=== PATIENT | female | born 1985 | race Caucasian/White ===

== ENCOUNTER 2020-02-12 09:02 | Observation (INO) | payer OTHER ==
[2020-02-12 10:54] LABS: AMORPHOUS SEDIMENT,URINE TRACE /HPF; APPEARANCE,URINE CLOUDY; BILIRUBIN,URINE NEGATIVE (NEGATIVE); COLOR,URINE YELLOW; GLUCOSE, URINE NEGATIVE (NEGATIVE); KETONES,URINE NEGATIVE (NEGATIVE); LEUKOCYTE ESTERASE,URINE NEGATIVE (NEGATIVE); NITRITE,URINE NEGATIVE (NEGATIVE); PROTEIN,URINE 30 mg/dL (NEGATIVE); URINE SPECIFIC GRAVITY 1.024; UROBILINOGEN,URINE NEGATIVE mg/dL (<2.0)
--- NOTE | 2020-02-12 11:52 | ER Document Report ---
ED GI/ - General Chief Complaint: Abdominal Pain Stated Complaint: ABDOMINAL PAIN Time Seen by Provider: 02/12/20 11:46 Notes: CHIEF COMPLAINT: Acute pelvic pain today HPI: 34-year-old female presenting to the emergency department complaining of acute pelvic pain today. Patient reports being approximately 5 weeks by dates. States that pain is mostly focalized in the lower abdomen and pelvis region over the suprapubic section she does have slight upper abdominal discomfort as well. No fever. No vomiting. Has had some nausea. Patient denies vaginal bleeding or vaginal discharge ROS: See HPI - all other systems were reviewed and are otherwise negative Constitutional: no fever or recent illness Eyes: no drainage, no blurred vision ENT: no runny nose, no sore throat Cardiovascular: no chest pain Resp: no SOB, no cough GI: no vomiting, no diarrhea, positive pelvic abdominal pain : no dysuria, no vaginal discharge Integumentary: no rash Allergy: no hives Musculoskeletal: no extremity pain or swelling Neurological: no numbness/tingling, no weakness MEDICATIONS: I agree with the patient medications as charted by the RN. ALLERGIES: I agree with the allergies as charted by the RN. PAST MEDICAL HISTORY/PAST SURGICAL HISTORY: Reviewed and agree as charted by RN. SOCIAL HISTORY: Reviewed and agree as charted by RN. FAMILY HISTORY: No significant familial comorbid conditions directly related to patient complaint EXAM: Reviewed vital signs as charted by RN. CONSTITUTIONAL: Alert and oriented and responds appropriately to questions. Well-appearing; well-nourished HEAD: Normocephalic; atraumatic EYES: PERRL; Conjunctivae clear, sclerae non-icteric ENT: normal nose; no rhinorrhea; moist mucous membranes; pharynx without lesions noted NECK: Supple without meningismus; non-tender; no cervical lymphadenopathy, no masses CARD: RRR; no murmurs, no clicks, no rubs, no gallops; symmetric distal pulses RESP: Normal chest excursion without splinting or tachypnea; breath sounds clear and equal bilaterally; no wheezes, no rhonchi, no rales ABD/GI: Normal bowel sounds; non-distended; soft, mild tenderness to the epigastric right upper quadrant region as well as across the suprapubic region of the pelvis and abdomen, no rebound, no guarding; no palpable organomegaly or masses : Female nurse wet pan mixer present. External genitalia normal. No skin lesions noted. Pelvic Exam: No active bleeding. No purulent discharge. Cervix appears normal. No CMT. cervical loss is closed no lesions or masses. Uterus difficult to palpate and moderately tender. Right/Left adnexa normal size and mildly tender. BACK: The back appears normal and is non-tender to palpation, there is no CVA tenderness EXT: Normal ROM in all joints; non-tender to palpation; no cyanosis, no effusions, no edema SKIN: Normal color for age and race; warm; dry; good turgor; no acute lesions noted NEURO: Moves all extremities equally; Motor and sensory function intact PSYCH: The patient's mood and manner are appropriate. Grooming and personal hygiene are appropriate. MDM: 34-year-old female with sharp pelvic pain today believes she is approximately 5 weeks , differential is large would include ectopic or ruptured ectopic, no specific pain in the right lower quadrant suggesting appendicitis. Will obtain baseline screening labs, sent for ultrasound - Related Data Allergies/Adverse Reactions: No Known Allergies Allergy (Unverified 02/12/20 09:14) Past Medical History - Social History Smoking Status: Unknown if Ever Smoked Family History: Reviewed & Not Pertinent Patient has homicidal ideation: No Physical Exam - Vital signs Vitals: Temp Pulse Resp BP Pulse Ox 97.4 F 92 16 101/62 98 02/12/20 09:12 02/12/20 09:12 02/12/20 09:12 02/12/20 09:12 02/12/20 09:12 Course - Re-evaluation Re-evalutation: 02/12/20 14:[address] Haque PETROLEUM GEOLOGIST who is on her way down to see the patient. Beta- hCG 1560. Hemoglobin is stable. I have had to give the patient pain medication. Will likely be admitted overnight for observation with PETROLEUM GEOLOGIST - Vital Signs Vital signs: Temp Pulse Resp BP Pulse Ox 97.4 F 92 16 101/62 98 02/12/20 09:15 02/12/20 09:12 02/12/20 09:12 02/12/20 09:12 02/12/20 09:12 - Laboratory Result Diagrams: 02/12/20 13:26 02/12/20 13:26 Laboratory results interpreted by me: 02/12/20 02/12/20 02/12/20 09:19 13:26 13:26 WBC 19.8 H MCH 26.9 L RDW 14.8 H Lymph % (Auto) 7.0 L [place] % (Auto) 2.2 L Absolute Neuts (auto) 17.9 H Seg Neutrophils % 90.2 H Carbon Dioxide 21 L Glucose 115 H Total Protein 6.2 L Beta HCG, Quant 1560.70 H Urine Protein 30 H Urine HCG, Qual POSITIVE H Discharge - Discharge Clinical Impression: Pelvic pain complicating Qualifiers: Trimester: first trimester Qualified Code(s): O26.891 - Other specified related conditions, first trimester; R10.2 - Pelvic and perineal pain Condition: Fair Disposition: ADMITTED OBSERVATION Admitting Provider: [facility] - Dr. Pippa Haque Unit Admitted: Labor and Delivery
[2020-02-12 13:36] LABS: BACTERIA (WET MOUNT) 4+ BACTERIA SEEN; EPITHELIALS (WET MOUNT) 3+ EPITHELIALS SEEN; RBCS (WET MOUNT) NO RBCS SEEN; T.VAGINALIS (WET MOUNT) NO TRICHOMONAS SEEN; WBCS (WET MOUNT) 2+ WBCS SEEN; YEAST (WET MOUNT) NO YEAST SEEN
[2020-02-12 13:40] LABS: ABSOLUTE BASOPHILS # (AUTO) 0.1 10^3/uL (0.0-0.2); ABSOLUTE LYMPHOCYTES (AUTO) 1.4 10^3/uL (0.5-4.7); ABSOLUTE MONOCYTES (AUTO) 0.4 10^3/uL (0.1-1.4); ABSOLUTE NEUT (AUTO) 17.9 10^3/uL (1.7-8.2); BASOPHILS % (AUTO) 0.5 % (0-2); EOSINOPHILS % (AUTO) 0.1 % (0-6); HEMOGLOBIN 12.1 g/dL (12.0-15.5); MEAN CORPUSCULAR HEMOGLOBIN 26.9 pg (27.0-33.4); MEAN CORPUSCULAR HGB CONC 32.8 g/dL (32.0-36.0); MEAN CORPUSCULAR VOLUME 82 fl (80-97); MONOCYTES % (AUTO) 2.2 % (3-13); PLATELET COUNT 355 10^3/uL (150-450); RED CELL DISTRIBUTION WIDTH 14.8 % (11.5-14.0); SEGMENTED NEUTROPHILS % (AUTO) 90.2 % (42-78); TOTAL CELLS COUNTED % (AUTO) 100 %; WHITE BLOOD COUNT 19.8 10^3/uL (4.0-10.5)
[2020-02-12] MEDS ORDERED: FENTANYL CITRATE INJ/PF 100 MCG/2 ML AMPUL IV ONE (13:57)
[2020-02-12] MEDS ORDERED: NORMAL SALINE 1000 ML 1,000 ML IV ONE (13:57)
[2020-02-12] MEDS ORDERED: ONDANSETRON HCL INJ/PF 4 MG/2 ML SDV IV ONE (13:57)
[2020-02-12 14:04] LABS: ALBUMIN 3.7 g/dL (3.5-5.0); ALKALINE PHOSPHATASE 65 U/L (38-126); ANION GAP 11 (5-19); ASPARTATE AMINO TRANSFERASE 17 U/L (14-36); BILIRUBIN,DIRECT 0.2 mg/dL (0.0-0.4); BILIRUBIN,TOTAL 0.7 mg/dL (0.2-1.3); BLOOD UREA NITROGEN 14 mg/dL (7-20); CARBON DIOXIDE 21 mmol/L (22-30); CHLORIDE 106 mmol/L (98-107); GLUCOSE 115 mg/dL (75-110); POTASSIUM 4.2 mmol/L (3.6-5.0); TOTAL PROTEIN 6.2 g/dL (6.3-8.2)
[2020-02-12 15:08] LABS: CHLAM PCR NOT DETECTED (NOT DETECT)
[2020-02-12] MEDS ORDERED: ACETAMINOPHEN 325 MG TABLET PO PRN (15:18)
[2020-02-12] MEDS ORDERED: ONDANSETRON HCL INJ/PF 4 MG/2 ML SDV IV PRN (15:18)
[2020-02-12 15:35] LABS: HEMATOCRIT 36.6 % (36.0-47.0); MEAN CORPUSCULAR HEMOGLOBIN 27.1 pg (27.0-33.4); MEAN CORPUSCULAR HGB CONC 32.8 g/dL (32.0-36.0); MEAN CORPUSCULAR VOLUME 83 fl (80-97); PLATELET COUNT 351 10^3/uL (150-450); RED BLOOD COUNT 4.43 10^6/uL (3.72-5.28); RED CELL DISTRIBUTION WIDTH 14.5 % (11.5-14.0); WHITE BLOOD COUNT 18.8 10^3/uL (4.0-10.5)
--- NOTE | 2020-02-12 15:42 | PDOC H&P ---
History of Present Illness Admission Date/PCP: 02/12/20 14:45 MINNIE BLISS PA-C Patient complains of: abdominal pain, History of Present Illness: BONITA GARZA is a 34 year old female at 5+1ega today by known LMP of 01/07/2020 per patient. She reports that this is a desired . She and her had been TTC for 2 years upon presenting to [facility] last week and learing of (they were there to request fertility consult). She denies h/o STDs. She denies smoker. She denies prior tubal factor infertility. She reports pain started this am after she went out to work on her car and became worse so she came in to ER for evaluation. She denies n/v/fevers. She denies dizzy/lightheadedness. She denies any other concerns except for diffuse lower pelvic pain - she describes as discomfort at this time. Past Medical History LMP: 01/07/2020 Gynecological Infection: No 2 Baby 2 Delivery: Spontaneous Vaginal Delivery 1 Baby 1 Delivery: Spontaneous Vaginal Delivery Medical History: None Cardiac Medical History: Reports: None Pulmonary Medical History: Reports: None EENT Medical History: Reports: None Neurological Medical History: Reports: None Endocrine Medical History: Reports: None Past Surgical History Past Surgical History: Reports: None Social History Information Source: Patient Lives with: Family Smoking Status: Unknown if Ever Smoked Electronic Cigarette use?: No Frequency of Alcohol Use: None Hx Recreational Drug Use: No Drugs: None Hx Prescription Drug Abuse: No - Advance Directive Resuscitation Status: Full Code Family History Family History: Reviewed & Not Pertinent Parental Family History Reviewed: No Children Family History Reviewed: NA Sibling(s) Family History Reviewed.: NA Medication/Allergy Allergies/Adverse Reactions: No Known Allergies Allergy (Unverified 02/12/20 09:14) Review of Systems Constitutional: ABSENT: chills, fever(s), headache(s), weight gain, weight loss Eyes: ABSENT: visual disturbances Ears: ABSENT: hearing changes Cardiovascular: ABSENT: chest pain, dyspnea on exertion, edema, orthropnea, palpitations Respiratory: ABSENT: cough, hemoptysis Gastrointestinal: PRESENT: abdominal pain. ABSENT: constipation, diarrhea, hematemesis, hematochezia, nausea, vomiting Genitourinary: ABSENT: dysuria, hematuria Musculoskeletal: ABSENT: joint swelling Integumentary: ABSENT: rash, wounds Neurological: ABSENT: abnormal gait, abnormal speech, confusion, dizziness, focal weakness, syncope Psychiatric: ABSENT: anxiety, depression, homidical ideation, suicidal ideation Endocrine: ABSENT: cold intolerance, heat intolerance, polydipsia, polyuria Hematologic/Lymphatic: ABSENT: easy bleeding, easy bruising Physical Exam - Physical Exam Vital Signs: Temp Pulse Resp BP Pulse Ox 97.4 F 92 16 101/62 98 02/12/20 09:15 02/12/20 09:12 02/12/20 09:12 02/12/20 09:12 02/12/20 09:12 Intake & Output 02/11/20 02/12/20 02/13/20 06:59 06:59 06:59 Intake Total 1000 Balance 1000 Weight 108.9 kg General appearance: PRESENT: no acute distress, cooperative, well-developed, well-nourished Head exam: PRESENT: atraumatic, normocephalic Neck exam: PRESENT: full ROM. ABSENT: carotid bruit, JVD, lymphadenopathy, thyromegaly Respiratory exam: PRESENT: clear to auscultation vic, symmetrical, unlabored Cardiovascular exam: PRESENT: RRR. ABSENT: diastolic murmur, rubs, systolic murmur Pulses: PRESENT: normal dorsalis pedis pul, +2 pedal pulses bilateral Vascular exam: PRESENT: normal capillary refill GI/Abdominal exam: PRESENT: normal bowel sounds, soft, tenderness - mild diffuse lower pelvic ttp, no rebound, no true guarding.. ABSENT: distended, mass, organolmegaly, rebound Rectal exam: PRESENT: deferred Extremities exam: PRESENT: full ROM. ABSENT: calf tenderness, clubbing, pedal edema Musculoskeletal exam: PRESENT: ambulatory Neurological exam: PRESENT: alert, awake, oriented to person, oriented to place, oriented to time, oriented to situation, CN II-XII grossly intact. ABSENT: motor sensory deficit Psychiatric exam: PRESENT: appropriate affect, normal mood. ABSENT: homicidal ideation, suicidal ideation Skin exam: PRESENT: dry, intact, warm. ABSENT: cyanosis, rash Result Laboratory Results: 02/12/20 14:49 02/12/20 13:26 02/12/20 02/12/20 02/12/20 09:19 13:26 13:26 WBC 19.8 H RBC 4.50 Hgb 12.1 Hct 37.0 MCV 82 MCH 26.9 L MCHC 32.8 RDW 14.8 H Plt Count 355 Seg Neutrophils % 90.2 H Sodium 138.0 Potassium 4.2 Chloride 106 Carbon Dioxide 21 L Anion Gap 11 BUN 14 Creatinine 0.52 Est GFR ( Amer) > 60 Glucose 115 H Calcium 9.0 Total Bilirubin 0.7 AST 17 Alkaline Phosphatase 65 Total Protein 6.2 L Albumin 3.7 Lipase 44.9 Urine Color YELLOW Urine Appearance CLOUDY Urine pH 5.0 Ur Specific [place] 1.024 Urine Protein 30 H Urine Glucose (UA) NEGATIVE Urine Ketones NEGATIVE Urine Blood NEGATIVE Urine Nitrite NEGATIVE Ur Leukocyte Esterase NEGATIVE Urine WBC (Auto) 2 Urine RBC (Auto) 1 Blood Type Antibody Screen 02/12/20 02/12/20 02/12/20 13:26 13:26 14:12 WBC RBC Hgb Hct MCV MCH MCHC RDW Plt Count Seg Neutrophils % Sodium Potassium Chloride Carbon Dioxide Anion Gap BUN Creatinine Est GFR ( Amer) Glucose Calcium Total Bilirubin AST Alkaline Phosphatase Total Protein Albumin Lipase Urine Color Urine Appearance Urine pH Ur Specific [place] Urine Protein Urine Glucose (UA) Urine Ketones Urine Blood Urine Nitrite Ur Leukocyte Esterase Urine WBC (Auto) Urine RBC (Auto) Blood Type Cancelled Cancelled Cancelled Antibody Screen Cancelled Cancelled 02/12/20 14:49 WBC 18.8 H RBC 4.43 Hgb 12.0 Hct 36.6 MCV 83 MCH 27.1 MCHC 32.8 RDW 14.5 H Plt Count 351 Seg Neutrophils % Sodium Potassium Chloride Carbon Dioxide Anion Gap BUN Creatinine Est GFR ( Amer) Glucose Calcium Total Bilirubin AST Alkaline Phosphatase Total Protein Albumin Lipase Urine Color Urine Appearance Urine pH Ur Specific [place] Urine Protein Urine Glucose (UA) Urine Ketones Urine Blood Urine Nitrite Ur Leukocyte Esterase Urine WBC (Auto) Urine RBC (Auto) Blood Type Antibody Screen Status: Image reviewed by me Assessment & Plan - Diagnosis (1) Pelvic pain complicating Qualifiers: Trimester: first trimester Qualified Code(s): O26.891 - Other specified related conditions, first trimester; R10.2 - Pelvic and perineal pain Is this a current diagnosis for this admission?: Yes (2) Adnexal mass Is this a current diagnosis for this admission?: Yes Plan: possible TOA, elevated WBC count. Will treat for PID/TOA - however, low on threshold of suspicion due to concern for either hemorrhagic ovarian cyst vs ectopic. is of unknown location. Recommended surgical intervention. However, due to patients concern for which is desired she declines surgery at this time. COVID screening rapid requested as she has agreed to admission and serial labs and exams. She will discuss with her and further evaluate options but declines surgical intervention at this time. (3) , location unknown Is this a current diagnosis for this admission?: Yes Plan: High suspicion for ectopic . Reviewed findings of BHCG and US with patient and reviewed with patient concerns based on US findings. However, patient desires and since under threshold for IUP and that she is currently stable she declines surgery at this time. - Time Time Spent: 30 to 50 Minutes Critical Time spent with patient: Less than 15 minutes Medications reviewed and adjusted accordingly: Yes Anticipated Discharge Disposition: Home, Self Care Anticipated Discharge Timeframe: within 48 hours - Inpatient Certification Based on my medical assessment, after consideration of the patient's comorbidities, presenting symptoms, or acuity I expect that the services needed warrant INPATIENT care.: Yes I certify that my determination is in accordance with my understanding of Medicare's requirements for reasonable and necessary INPATIENT services [42 CFR 412.3e].: Yes Medical Necessity: Failure to Improve With Outpatient Therapy, Need Close Monitoring Due to Risk of Patient Decompensation, Need for Pain Control, Need for IV Antibiotics, Risk of Complication if Not Cared For in Hospital
[2020-02-12] MEDS: OXYCODONE-ACETAMINOPHEN 5-325 MG TABLET PO PRN (17:50)
[2020-02-12] MEDS: DOCUSATE SODIUM 100 MG CAPSULE PO SCH (17:50)
[2020-02-12] MEDS ORDERED: CEFOXITIN INJ 2 GM VIAL IV SCH ×2 (18:00→22:00)
[2020-02-12] MEDS ORDERED: HYDROMORPHONE HCL INJ/PF 2 MG/ML AMPULE IV ONE (18:00)
[2020-02-12] MEDS: CEFOXITIN SODIUM 2 GM in DEXTROSE 5%-WATER 100 ML IV SCH ×2 (18:33→23:23)
[2020-02-12] MEDS: DEXTROSE 5%-1/2 NORMAL SALINE 1,000 ML IV PRN (18:35)
[2020-02-12 18:47] LABS: ABSOLUTE BASOPHILS # (AUTO) 0.1 10^3/uL (0.0-0.2); ABSOLUTE MONOCYTES (AUTO) 0.6 10^3/uL (0.1-1.4); ABSOLUTE NEUT (AUTO) 15.4 10^3/uL (1.7-8.2); BASOPHILS % (AUTO) 0.5 % (0-2); HEMATOCRIT 36.3 % (36.0-47.0); HEMOGLOBIN 11.9 g/dL (12.0-15.5); LYMPHOCYTES % (AUTO) 10.8 % (13-45); MEAN CORPUSCULAR HEMOGLOBIN 27.1 pg (27.0-33.4); MEAN CORPUSCULAR HGB CONC 32.8 g/dL (32.0-36.0); MEAN CORPUSCULAR VOLUME 83 fl (80-97); MONOCYTES % (AUTO) 3.5 % (3-13); PLATELET COUNT 388 10^3/uL (150-450); RED CELL DISTRIBUTION WIDTH 14.9 % (11.5-14.0); SEGMENTED NEUTROPHILS % (AUTO) 85.2 % (42-78); TOTAL CELLS COUNTED % (AUTO) 100 %; WHITE BLOOD COUNT 18.1 10^3/uL (4.0-10.5)
--- NOTE | 2020-02-12 19:22 | PDOC PROGRESS REPORT ---
Subjective Progress Note for:: 02/12/20 Subjective:: pt arriving to floor and asked for pain meds. Reason For Visit: UNKNOWN LOCATION, ADNEXAL MASS, Physical Exam - Physical Exam Vital Signs: Temp Pulse Resp BP Pulse Ox 97.8 F 99 16 137/65 H 99 02/12/20 17:11 02/12/20 17:11 02/12/20 17:11 02/12/20 17:11 02/12/20 17:11 Intake & Output 02/11/20 02/12/20 02/13/20 06:59 06:59 06:59 Intake Total 1000 Balance 1000 Weight 108.9 kg General appearance: PRESENT: no acute distress, well-developed, well-nourished Head exam: PRESENT: atraumatic, normocephalic Respiratory exam: PRESENT: clear to auscultation vic, symmetrical, unlabored Cardiovascular exam: PRESENT: RRR. ABSENT: diastolic murmur, rubs, systolic murmur Pulses: PRESENT: normal dorsalis pedis pul, +2 pedal pulses bilateral GI/Abdominal exam: PRESENT: guarding, soft, tenderness Rectal exam: PRESENT: deferred Extremities exam: PRESENT: full ROM. ABSENT: calf tenderness, clubbing, pedal edema Neurological exam: PRESENT: alert, awake, oriented to person, oriented to place, oriented to time, oriented to situation, CN II-XII grossly intact. ABSENT: motor sensory deficit Psychiatric exam: PRESENT: appropriate affect, normal mood. ABSENT: homicidal ideation, suicidal ideation Skin exam: PRESENT: abrasion Result Laboratory Results: 02/12/20 18:27 02/12/20 13:26 02/12/20 02/12/20 02/12/20 09:19 13:26 13:26 WBC 19.8 H RBC 4.50 Hgb 12.1 Hct 37.0 MCV 82 MCH 26.9 L MCHC 32.8 RDW 14.8 H Plt Count 355 Seg Neutrophils % 90.2 H Sodium 138.0 Potassium 4.2 Chloride 106 Carbon Dioxide 21 L Anion Gap 11 BUN 14 Creatinine 0.52 Est GFR ( Amer) > 60 Glucose 115 H Calcium 9.0 Total Bilirubin 0.7 AST 17 Alkaline Phosphatase 65 Total Protein 6.2 L Albumin 3.7 Lipase 44.9 Urine Color YELLOW Urine Appearance CLOUDY Urine pH 5.0 Ur Specific [place] 1.024 Urine Protein 30 H Urine Glucose (UA) NEGATIVE Urine Ketones NEGATIVE Urine Blood NEGATIVE Urine Nitrite NEGATIVE Ur Leukocyte Esterase NEGATIVE Urine WBC (Auto) 2 Urine RBC (Auto) 1 Blood Type Antibody Screen 02/12/20 02/12/20 02/12/20 13:26 13:26 14:12 WBC RBC Hgb Hct MCV MCH MCHC RDW Plt Count Seg Neutrophils % Sodium Potassium Chloride Carbon Dioxide Anion Gap BUN Creatinine Est GFR ( Amer) Glucose Calcium Total Bilirubin AST Alkaline Phosphatase Total Protein Albumin Lipase Urine Color Urine Appearance Urine pH Ur Specific [place] Urine Protein Urine Glucose (UA) Urine Ketones Urine Blood Urine Nitrite Ur Leukocyte Esterase Urine WBC (Auto) Urine RBC (Auto) Blood Type Cancelled Cancelled Cancelled Antibody Screen Cancelled Cancelled 02/12/20 02/12/20 02/12/20 14:49 14:49 18:27 WBC 18.8 H 18.1 H RBC 4.43 4.40 Hgb 12.0 11.9 L Hct 36.6 36.3 MCV 83 83 MCH 27.1 27.1 MCHC 32.8 32.8 RDW 14.5 H 14.9 H Plt Count 351 388 Seg Neutrophils % 85.2 H Sodium Potassium Chloride Carbon Dioxide Anion Gap BUN Creatinine Est GFR ( Amer) Glucose Calcium Total Bilirubin AST Alkaline Phosphatase Total Protein Albumin Lipase Urine Color Urine Appearance Urine pH Ur Specific [place] Urine Protein Urine Glucose (UA) Urine Ketones Urine Blood Urine Nitrite Ur Leukocyte Esterase Urine WBC (Auto) Urine RBC (Auto) Blood Type O POSITIVE Antibody Screen NEGATIVE Status: Image reviewed by me Assessment & Plan - Diagnosis (1) Pelvic pain complicating Qualifiers: Trimester: first trimester Qualified Code(s): O26.891 - Other specified related conditions, first trimester; R10.2 - Pelvic and perineal pain Is this a current diagnosis for this admission?: Yes (2) Adnexal mass Is this a current diagnosis for this admission?: Yes Plan: reviewed with patient again and very high suspicion of ectopic. she still desires to wait to do surgery when she has to. reviewed Hb/Hct stable but still a concern for ruptured ectopic and recommendation for surgery. She really wants to wait to saturday for repeat BHCG and US but informed patient that would be very unlikely with large 9cm mass would be surprised if she makes it out of the next 24 hours without surgical intervention. She declines at this time but says that she will consent if things change. She would like continued inpatient monitoring at this time. (3) , location unknown Is this a current diagnosis for this admission?: Yes Plan: suspect ectopic - Time Time Spent with patient: Less than 15 minutes Medications reviewed and adjusted accordingly: Yes Anticipated discharge: Home Anticipated DC Timeframe: within 48 hours - Inpatient Certification Based on my medical assessment, after consideration of the patient's comorbidities, presenting symptoms, or acuity I expect that the services needed warrant INPATIENT care.: Yes I certify that my determination is in accordance with my understanding of Medicare's requirements for reasonable and necessary INPATIENT services [42 CFR 412.3e].: Yes Medical Necessity: Need Close Monitoring Due to Risk of Patient Decompensation, Need For IV Fluids, Need for Pain Control, Need for IV Antibiotics, Need for Surgery
[2020-02-12] MEDS ORDERED: DOXYCYCLINE HYCLATE 100 MG TABLET PO ONE (22:33)
[2020-02-12] MEDS: DOXYCYCLINE HYCLATE 100 MG TABLET PO SCH (22:44)
[2020-02-13 00:18] LABS: ABSOLUTE BASOPHILS # (AUTO) 0.1 10^3/uL (0.0-0.2); ABSOLUTE LYMPHOCYTES (AUTO) 2.4 10^3/uL (0.5-4.7); ABSOLUTE MONOCYTES (AUTO) 0.8 10^3/uL (0.1-1.4); ABSOLUTE NEUT (AUTO) 10.8 10^3/uL (1.7-8.2); BASOPHILS % (AUTO) 0.6 % (0-2); EOSINOPHILS % (AUTO) 0.2 % (0-6); LYMPHOCYTES % (AUTO) 17.3 % (13-45); MEAN CORPUSCULAR HEMOGLOBIN 27.2 pg (27.0-33.4); MEAN CORPUSCULAR HGB CONC 33.5 g/dL (32.0-36.0); MEAN CORPUSCULAR VOLUME 81 fl (80-97); MONOCYTES % (AUTO) 5.5 % (3-13); PLATELET COUNT 346 10^3/uL (150-450); RED BLOOD COUNT 4.05 10^6/uL (3.72-5.28); RED CELL DISTRIBUTION WIDTH 14.5 % (11.5-14.0); SEGMENTED NEUTROPHILS % (AUTO) 76.4 % (42-78); TOTAL CELLS COUNTED % (AUTO) 100 %; WHITE BLOOD COUNT 14.1 10^3/uL (4.0-10.5)
--- NOTE | 2020-02-13 01:17 | PDOC PROGRESS REPORT ---
Subjective Progress Note for:: 02/13/20 Subjective:: CBC is returned. Now she has been on IVF since 1700. No pain meds since 1700. Reason For Visit: UNKNOWN LOCATION, ADNEXAL MASS, Physical Exam - Physical Exam Vital Signs: Temp Pulse Resp BP Pulse Ox 97.8 F 78 18 114/72 100 02/13/20 00:04 02/13/20 00:04 02/13/20 00:04 02/13/20 00:04 02/13/20 00:04 Intake & Output 02/11/20 02/12/20 02/13/20 06:59 06:59 06:59 Intake Total 1000 Balance 1000 Weight 108.9 kg General appearance: PRESENT: no acute distress, well-developed, well-nourished Head exam: PRESENT: atraumatic, normocephalic Respiratory exam: PRESENT: clear to auscultation vic, symmetrical, unlabored Cardiovascular exam: PRESENT: RRR. ABSENT: diastolic murmur, rubs, systolic murmur Pulses: PRESENT: normal dorsalis pedis pul, +2 pedal pulses bilateral Vascular exam: PRESENT: normal capillary refill GI/Abdominal exam: PRESENT: guarding, normal bowel sounds, soft, tenderness. ABSENT: distended, mass, organolmegaly, rebound Rectal exam: PRESENT: deferred Extremities exam: PRESENT: full ROM. ABSENT: calf tenderness, clubbing, pedal edema Musculoskeletal exam: PRESENT: ambulatory Neurological exam: PRESENT: alert, awake, oriented to person, oriented to place, oriented to time, oriented to situation, CN II-XII grossly intact. ABSENT: motor sensory deficit Psychiatric exam: PRESENT: appropriate affect, normal mood. ABSENT: homicidal ideation, suicidal ideation Skin exam: PRESENT: dry, intact, warm. ABSENT: cyanosis, rash Result Laboratory Results: 02/13/20 00:13 02/12/20 13:26 02/12/20 02/12/20 02/12/20 09:19 13:26 13:26 WBC 19.8 H RBC 4.50 Hgb 12.1 Hct 37.0 MCV 82 MCH 26.9 L MCHC 32.8 RDW 14.8 H Plt Count 355 Seg Neutrophils % 90.2 H Sodium 138.0 Potassium 4.2 Chloride 106 Carbon Dioxide 21 L Anion Gap 11 BUN 14 Creatinine 0.52 Est GFR ( Amer) > 60 Glucose 115 H Calcium 9.0 Total Bilirubin 0.7 AST 17 Alkaline Phosphatase 65 Total Protein 6.2 L Albumin 3.7 Lipase 44.9 Urine Color YELLOW Urine Appearance CLOUDY Urine pH 5.0 Ur Specific [place] 1.024 Urine Protein 30 H Urine Glucose (UA) NEGATIVE Urine Ketones NEGATIVE Urine Blood NEGATIVE Urine Nitrite NEGATIVE Ur Leukocyte Esterase NEGATIVE Urine WBC (Auto) 2 Urine RBC (Auto) 1 Blood Type Antibody Screen 02/12/20 02/12/20 02/12/20 13:26 13:26 14:12 WBC RBC Hgb Hct MCV MCH MCHC RDW Plt Count Seg Neutrophils % Sodium Potassium Chloride Carbon Dioxide Anion Gap BUN Creatinine Est GFR ( Amer) Glucose Calcium Total Bilirubin AST Alkaline Phosphatase Total Protein Albumin Lipase Urine Color Urine Appearance Urine pH Ur Specific [place] Urine Protein Urine Glucose (UA) Urine Ketones Urine Blood Urine Nitrite Ur Leukocyte Esterase Urine WBC (Auto) Urine RBC (Auto) Blood Type Cancelled Cancelled Cancelled Antibody Screen Cancelled Cancelled 02/12/20 02/12/20 02/12/20 14:49 14:49 18:27 WBC 18.8 H 18.1 H RBC 4.43 4.40 Hgb 12.0 11.9 L Hct 36.6 36.3 MCV 83 83 MCH 27.1 27.1 MCHC 32.8 32.8 RDW 14.5 H 14.9 H Plt Count 351 388 Seg Neutrophils % 85.2 H Sodium Potassium Chloride Carbon Dioxide Anion Gap BUN Creatinine Est GFR ( Amer) Glucose Calcium Total Bilirubin AST Alkaline Phosphatase Total Protein Albumin Lipase Urine Color Urine Appearance Urine pH Ur Specific [place] Urine Protein Urine Glucose (UA) Urine Ketones Urine Blood Urine Nitrite Ur Leukocyte Esterase Urine WBC (Auto) Urine RBC (Auto) Blood Type O POSITIVE Antibody Screen NEGATIVE 02/13/20 00:13 WBC 14.1 H RBC 4.05 Hgb 11.0 L Hct 33.0 L MCV 81 MCH 27.2 MCHC 33.5 RDW 14.5 H Plt Count 346 Seg Neutrophils % 76.4 Sodium Potassium Chloride Carbon Dioxide Anion Gap BUN Creatinine Est GFR ( Amer) Glucose Calcium Total Bilirubin AST Alkaline Phosphatase Total Protein Albumin Lipase Urine Color Urine Appearance Urine pH Ur Specific [place] Urine Protein Urine Glucose (UA) Urine Ketones Urine Blood Urine Nitrite Ur Leukocyte Esterase Urine WBC (Auto) Urine RBC (Auto) Blood Type Antibody Screen Status: Image reviewed by me Assessment & Plan - Diagnosis (1) Pelvic pain complicating Qualifiers: Trimester: first trimester Qualified Code(s): O26.891 - Other specified related conditions, first trimester; R10.2 - Pelvic and perineal pain Is this a current diagnosis for this admission?: Yes Plan: no pain meds since 1699, pt reports that pain is now 2/5 (2) Adnexal mass Is this a current diagnosis for this admission?: Yes Plan: reviewed still very concerned about ectopic or hemorrhagic cyst. Reviewed based on [facility] [place] highest on differential is ectopic and still recommend OR. she reports that she really feels better as long as she is sits in a certain position. (3) , location unknown Is this a current diagnosis for this admission?: Yes - Time Time Spent with patient: Less than 15 minutes Anticipated discharge: Home Anticipated DC Timeframe: within 24 hours - Inpatient Certification Based on my medical assessment, after consideration of the patient's comorbidities, presenting symptoms, or acuity I expect that the services needed warrant INPATIENT care.: Yes I certify that my determination is in accordance with my understanding of Medicare's requirements for reasonable and necessary INPATIENT services [42 CFR 412.3e].: Yes Medical Necessity: Need Close Monitoring Due to Risk of Patient Decompensation, Need For IV Fluids, Need for Surgery Post Hospital Care: D/C Forming Press Operator Documentation
[2020-02-13] MEDS: CEFOXITIN SODIUM 2 GM in DEXTROSE 5%-WATER 100 ML IV SCH ×3 (05:24→17:38)
[2020-02-13 05:40] LABS: ABSOLUTE BASOPHILS # (AUTO) 0.1 10^3/uL (0.0-0.2); ABSOLUTE LYMPHOCYTES (AUTO) 1.8 10^3/uL (0.5-4.7); ABSOLUTE MONOCYTES (AUTO) 0.6 10^3/uL (0.1-1.4); ABSOLUTE NEUT (AUTO) 9.3 10^3/uL (1.7-8.2); BASOPHILS % (AUTO) 0.6 % (0-2); EOSINOPHILS % (AUTO) 0.1 % (0-6); HEMOGLOBIN 10.6 g/dL (12.0-15.5); LYMPHOCYTES % (AUTO) 15.4 % (13-45); MEAN CORPUSCULAR HEMOGLOBIN 27.3 pg (27.0-33.4); MEAN CORPUSCULAR HGB CONC 33.2 g/dL (32.0-36.0); MEAN CORPUSCULAR VOLUME 82 fl (80-97); MONOCYTES % (AUTO) 5.3 % (3-13); PLATELET COUNT 334 10^3/uL (150-450); RED BLOOD COUNT 3.89 10^6/uL (3.72-5.28); RED CELL DISTRIBUTION WIDTH 14.7 % (11.5-14.0); SEGMENTED NEUTROPHILS % (AUTO) 78.6 % (42-78); TOTAL CELLS COUNTED % (AUTO) 100 %; WHITE BLOOD COUNT 11.8 10^3/uL (4.0-10.5)
[2020-02-13] MEDS: OXYCODONE-ACETAMINOPHEN 5-325 MG TABLET PO PRN ×3 (06:46→20:00)
[2020-02-13] MEDS ORDERED: SUCCINYLCHOLINE CHLORIDE INJ 200 MG/10 ML VIAL ONE (08:05)
[2020-02-13] MEDS ORDERED: DEXAMETHASONE SOD PHOSPHATE INJ 4 MG/1 ML VIAL ONE (08:05)
[2020-02-13] MEDS ORDERED: ROCURONIUM BROMIDE INJ 50 MG/5 ML VIAL IV ONE (08:05)
[2020-02-13] MEDS ORDERED: ONDANSETRON HCL INJ/PF 4 MG/2 ML SDV ONE (08:05)
--- NOTE | 2020-02-13 08:31 | RADIOLOGY REPORT (SQ) ---
EXAM DESCRIPTION: U/S 1TRIMESTER/1GEST W/DOPPLER IMAGES COMPLETED DATE/TIME: 02/13/2020 7:59 am REASON FOR STUDY: re-eval adnexal mass COMPARISON: None. TECHNIQUE: Transabdominal static and realtime grayscale images acquired of the pelvis. Additional se lected spectral and color Doppler images recorded. All images stored on PACs. CLINICAL AGE: 5 week 2 day BHC.4, falling. LIMITATIONS: None. FINDINGS: UTERUS: No visualized intrauterine . RIGHT ADNEXA: In the region of the right and I would neck cm scratch at in the region in the right ad nexa, there is a hypoechoic masslike region with no internal vascularity which measures up to 8.1 cm. Mild free fluid about the right ovary. LEFT ADNEXA: Not seen. No adnexal free fluid. No adnexal masses. FREE FLUID: None. OTHER: No other significant finding. IMPRESSION: Complex mass in the region of the right ovary looks similar to prior. No IUP identified . There is no significant vascularity in this lesion to suggest ectopic. Longer term clinical and imaging followup may be warranted. TECHNICAL DOCUMENTATION: JOB ID: [id number] 2010 [employer]- All Rights Reserved Reading location - IP/workstation name: [email or web address]
[2020-02-13] MEDS: DEXTROSE 5%-1/2 NORMAL SALINE 1,000 ML IV PRN (08:56)
[2020-02-13] MEDS ORDERED: FENTANYL CITRATE INJ/PF 100 MCG/2 ML AMPUL ONE (09:59)
[2020-02-13] MEDS ORDERED: MIDAZOLAM 2 MG/2 ML INJ ONE (09:59)
[2020-02-13] MEDS ORDERED: MORPHINE SULFATE 10 MG/ML INJ ONE (10:00)
[2020-02-13] MEDS ORDERED: PROPOFOL INJ 200 MG/20 ML VIAL IV ONE (10:00)
[2020-02-13] MEDS ORDERED: LIDOCAINE 1%/EPINEPHRINE INJ 20 ML VIAL ONE (10:07)
[2020-02-13] MEDS ORDERED: BUPIVACAINE HCL 0.5 % INJ/PF 30 ML SDV ONE (11:05)
[2020-02-13] MEDS ORDERED: MORPHINE SULFATE 10 MG/ML INJ IV PRN ×2 (11:26→11:54)
[2020-02-13] MEDS ORDERED: FENTANYL CITRATE INJ/PF 100 MCG/2 ML AMPUL IV PRN ×2 (11:26)
[2020-02-13] MEDS ORDERED: ONDANSETRON HCL INJ/PF 4 MG/2 ML SDV IV PRN (11:26)
[2020-02-13] MEDS ORDERED: MEPERIDINE HCL/PF INJ 25 MG/1 ML DISP.SYRIN IV PRN (11:26)
[2020-02-13] MEDS ORDERED: OXYCODONE-ACETAMINOPHEN 5-325 MG TABLET PO PRN ×3 (11:26→11:54)
[2020-02-13] MEDS ORDERED: PROMETHAZINE HCL INJ 25 MG/1 ML VIAL IV PRN ×2 (11:26→11:54)
[2020-02-13] MEDS ORDERED: ACETAMINOPHEN 325 MG TABLET PO PRN (11:54)
[2020-02-13] MEDS ORDERED: RINGERS SOLUTION,LACTATED 1,000 ML IV PRN (11:54)
[2020-02-13] MEDS ORDERED: DIPH/PERTUSS(ACELL)/TETANUS VAC/PF 0.5 ML SYR (>=10YO) IM PRN (11:54)
[2020-02-13] MEDS ORDERED: SIMETHICONE 80 MG TAB.CHEW PO PRN (11:54)
[2020-02-13] MEDS ORDERED: MEASLES,MUMPS&RUBELLA VACC/PF 0.5 ML VIAL SUBCUT PRN (11:54)
[2020-02-13] MEDS ORDERED: IBUPROFEN 800 MG TABLET PO SCH (12:00)
[2020-02-13] MEDS ORDERED: ACETAMINOPHEN 1,000 MG/100 ML RTUPB IV PRN (12:00)
[2020-02-13] MEDS: FENTANYL CITRATE INJ/PF 100 MCG/2 ML AMPUL ONE ×2 (12:06→12:10)
--- NOTE | 2020-02-13 12:07 | Operative Report ---
Operative Report DATE OF SURGERY: 02/13/20 PREOPERATIVE DIAGNOSIS: Ectopic , hemoperitoneum POSTOPERATIVE DIAGNOSIS: Same OPERATION: Exploratory laparotomy with left salpingectomy evacuation of hemoperitoneum SURGEON: DOTTIE WORTHINGTON ANESTHESIA: GA TISSUE REMOVED OR ALTERED: Left fallopian tube, ovarian hemorrhagic cyst COMPLICATIONS: None ESTIMATED BLOOD LOSS: 700 cc INTRAOPERATIVE FINDINGS: Left ectopic in the proximal isthmic portion of the fallopian tube, left ovary with cystic area that looked to be a ruptured hemorrhagic cyst, right ovary and fallopian tube normal in appearance PROCEDURE: Patient was taken the operating room prepared and draped in normal sterile fashion in the supine position. A Pfannenstiel skin incision was made with a 10 blade and carried through to the underlying layer fascia with the same 10 blade. She was excised in the midline and extended laterally with the Bovie. The fascia was then dissected from the rectus muscle sharply with the Bovie both superiorly and inferiorly till adequate access into the peritoneal cavity could be obtained. Rectus muscle was divided in the midline peritoneal cavity was entered sharply with Metzenbaums. Immediate notice of the hemoperitoneum with blood clots coming up to the surface and these were evacuated with pool suction blunt removal. Uterus was located and lifted into the surgical field the right ovary and fallopian tube were noticed first and these were seem to be normal in appearance with the exception of a small possible corpus luteal cyst on the right ovary. The left fallopian tube was followed was followed out and the fimbriated end was located the left ovary was noted to have a an area that seemed to be consistent with a ruptured hemorrhagic cyst this cystic area was scooped out with clots that were in the hemoperitoneum and this was sent off for pathological review. The left fallopian tube was continued to be localized and the ectopic was noted at the above mentioned. The ectopic was very close to the cornual aspect of the uterus and it was actively bleeding at the time it was located therefore the decision was made to remove this fallopian tube. The fallopian tube was grasped with a [place] at the end fimbriated end and using the LigaSure and following the mesosalpinx of the stop the salpingectomy was performed. The fallopian tube was then transected completely from the uterine cornea using the LigaSure. There was a small amount of blee ding once the fallopian tube was passed off the field at the uterine cornea this was attempted to be coagulated with the Bovie that was unsuccessful therefore 1 [id number] suture with an 0 Vicryl was placed. We did get better hemostasis with this we applied pressure for several minutes and utilized the Bovie to once again obtain hemostasis. A piece of Interceed was placed at this defect to help with preventing adhesion this and the other piece of Interceed was then placed around the right ovary again to help prevent adhesions. Uterus was then returned to the abdomen and the peritoneal cavity was inspected and cleared of any residual clots the rectus muscle and peritoneum were reapproximated with 2 interrupted sutures of 2-0 chromic. The fascia was closed with 0 Vicryl the subcutaneous layer was closed with plain catgut and the skin was closed with 4-0 Vicryl. The patient tolerated the procedure well sponge lap and needle counts were correct x2 and the patient was taken to recovery in stable condition.
[2020-02-13] MEDS: DOCUSATE SODIUM 100 MG CAPSULE PO SCH ×2 (12:09→17:38)
[2020-02-13] MEDS: DOXYCYCLINE HYCLATE 100 MG TABLET PO SCH ×2 (13:02→21:34)
[2020-02-13] MEDS: KETOROLAC TROMETHAMINE INJ/PF 30 MG/1 ML SDV IV SCH ×2 (13:04→21:35)
--- NOTE | 2020-02-13 15:19 | RADIOLOGY REPORT (SQ) ---
EXAM DESCRIPTION: U/S OB TRANSVAG W/DOPPLER IMAGES COMPLETED DATE/TIME: 02/12/2020 12:52 pm REASON FOR STUDY: pelvic pain 5wks preg COMPARISON: None. TECHNIQUE: Transvaginal static and realtime grayscale images acquired of the pelvis. Additional fritz cted spectral and color Doppler images recorded. All images stored on PACs. CLINICAL AGE: Not known BHCG: Not available. LIMITATIONS: None. FINDINGS: UTERUS: No visualized intrauterine . RIGHT ADNEXA: There is a complex hypoechoic lesion measuring about 9.5 cm with no internal flow. No adnexal free fluid. LEFT ADNEXA: Normal ovary with normal vascular flow. No adnexal free fluid. No adnexal masses. FREE FLUID: None. OTHER: No other significant finding. IMPRESSION: NO VISUALIZED INTRA- OR EXTRAUTERINE . COMPLEX HYPOECHOIC STRUCTURE CANNOT EXCLUDE RUPTURED ECTOPIC. COMMENT: FINDINGS DISCUSSED WITH DR. BANERJEE. TECHNICAL DOCUMENTATION: JOB ID: [id number] 2010 [employer]- All Rights Reserved Reading location - IP/workstation name: [email or web address]
[2020-02-13] MEDS ORDERED: DOCUSATE SODIUM 100 MG CAPSULE PO SCH (18:00)
[2020-02-14] MEDS: CEFOXITIN SODIUM 2 GM in DEXTROSE 5%-WATER 100 ML IV SCH ×3 (00:36→11:17)
[2020-02-14] MEDS: OXYCODONE-ACETAMINOPHEN 5-325 MG TABLET PO PRN ×3 (01:15→11:17)
[2020-02-14] MEDS: KETOROLAC TROMETHAMINE INJ/PF 30 MG/1 ML SDV IV SCH (05:50)
[2020-02-14 06:37] LABS: HEMATOCRIT 29.4 % (36.0-47.0); HEMOGLOBIN 9.8 g/dL (12.0-15.5); MEAN CORPUSCULAR HEMOGLOBIN 27.4 pg (27.0-33.4); MEAN CORPUSCULAR HGB CONC 33.2 g/dL (32.0-36.0); MEAN CORPUSCULAR VOLUME 83 fl (80-97); PLATELET COUNT 319 10^3/uL (150-450); RED BLOOD COUNT 3.57 10^6/uL (3.72-5.28); RED CELL DISTRIBUTION WIDTH 14.5 % (11.5-14.0); WHITE BLOOD COUNT 15.1 10^3/uL (4.0-10.5)
[2020-02-14 08:12] LABS: HEMATOCRIT 26.8 % (36.0-47.0); HEMOGLOBIN 8.9 g/dL (12.0-15.5); MEAN CORPUSCULAR HEMOGLOBIN 27.3 pg (27.0-33.4); MEAN CORPUSCULAR HGB CONC 33.4 g/dL (32.0-36.0); MEAN CORPUSCULAR VOLUME 82 fl (80-97); PLATELET COUNT 295 10^3/uL (150-450); RED BLOOD COUNT 3.28 10^6/uL (3.72-5.28); RED CELL DISTRIBUTION WIDTH 14.5 % (11.5-14.0); WHITE BLOOD COUNT 12.8 10^3/uL (4.0-10.5)
[2020-02-14] MEDS: DOCUSATE SODIUM 100 MG CAPSULE PO SCH (09:14)
[2020-02-14] MEDS: DOXYCYCLINE HYCLATE 100 MG TABLET PO SCH (09:19)
--- NOTE | 2020-02-14 12:10 | PDOC DISCHARGE SUMMARY ---
Impression - Admit/DC Date/PCP Admission Date/Primary Care Provider: 02/12/20 14:45 MINNIE BLISS PA-C Discharge Date: 02/14/20 - Discharge Diagnosis (1) Ectopic without intrauterine Is this a current diagnosis for this admission?: Yes (2) Adnexal mass Is this a current diagnosis for this admission?: Yes - Assessment Summary: patient admitted for serial abdominal exams and labs. patient underwent a exploratory laparotomy with left salpingectomy and exvacuation of hemoperitoneum on HD #2. She has had a normal postoperative course and is tolerating a regular diet, voiding normal and passing flatus. - Additional Information Resuscitation Status: Full Code Discharge Diet: As Tolerated Discharge Activity: Balance Activity w/Rest, No Driving, No Lifting Over 10 Pounds, No Lifting/Push/Pulling, Pelvic Rest, No tub bath Referrals: MINNIE BLISS PA-C [Primary Care Provider] - Follow up as needed Prescriptions: Oxycodone HCl/Acetaminophen [Percocet 5-325 mg Tablet] 1 tab PO Q4HP PRN #30 tablet PRN Reason: Docusate Sodium [Colace 100 mg Capsule] 100 mg PO BID #60 capsule Ibuprofen [Motrin 800 mg Tablet] 800 mg PO Q8H #60 tablet Home Medications: Vit/Dha [ Multi + Dha Capsule] 1 cap PO DAILY 02/12/20 Docusate Sodium [Colace 100 mg Capsule] 100 mg PO BID #60 capsule 02/14/20 Ibuprofen [Motrin 800 mg Tablet] 800 mg PO Q8H #60 tablet 02/14/20 Oxycodone HCl/Acetaminophen [Percocet 5-325 mg Tablet] 1 tab PO Q4HP PRN #30 tablet 02/14/20 History of Present Illiness History of Present Illness: BONITA GARZA is a 34 year old female Physical Exam - Physical Exam Vital Signs: Temp Pulse Resp BP Pulse Ox 97.9 F 86 18 107/56 L 99 02/14/20 11:06 02/14/20 11:06 02/14/20 11:06 02/14/20 11:06 02/14/20 11:06 Intake & Output 02/13/20 02/14/20 02/15/20 06:59 06:59 06:59 Intake Total 1000 2400 Output Total 2300 150 Balance 1000 100 -150 Weight 110.2 kg 110 kg Results Laboratory Results: WBC 12.8 10^3/uL (4.0-10.5) H 02/14/20 08:08 RBC 3.28 10^6/uL (3.72-5.28) L 02/14/20 08:08 Hgb 8.9 g/dL (12.0-15.5) L 02/14/20 08:08 Hct 26.8 % (36.0-47.0) L 02/14/20 08:08 MCV 82 fl (80-97) 02/14/20 08:08 MCH 27.3 pg (27.0-33.4) 02/14/20 08:08 MCHC 33.4 g/dL (32.0-36.0) 02/14/20 08:08 RDW 14.5 % (11.5-14.0) H 02/14/20 08:08 Plt Count 295 10^3/uL (150-450) 02/14/20 08:08 Lymph % (Auto) 15.4 % (13-45) 02/13/20 05:22 [place] % (Auto) 5.3 % (3-13) 02/13/20 05:22 Eos % (Auto) 0.1 % (0-6) 02/13/20 05:22 Baso % (Auto) 0.6 % (0-2) 02/13/20 05:22 Absolute Neuts (auto) 9.3 10^3/uL (1.7-8.2) H 02/13/20 05:22 Absolute Lymphs (auto) 1.8 10^3/uL (0.5-4.7) 02/13/20 05:22 Absolute Monos (auto) 0.6 10^3/uL (0.1-1.4) 02/13/20 05:22 Absolute Eos (auto) 0.0 10^3/uL (0.0-0.6) 02/13/20 05:22 Absolute Basos (auto) 0.1 10^3/uL (0.0-0.2) 02/13/20 05:22 Seg Neutrophils % 78.6 % (42-78) H 02/13/20 05:22 Sodium 138.0 mmol/L (137-145) 02/12/20 13:26 Potassium 4.2 mmol/L (3.6-5.0) 02/12/20 13:26 Chloride 106 mmol/L (98-107) 02/12/20 13:26 Carbon Dioxide 21 mmol/L (22-30) L 02/12/20 13:26 Anion Gap 11 (5-19) 02/12/20 13:26 BUN 14 mg/dL (7-20) 02/12/20 13:26 Creatinine 0.52 mg/dL (0.52-1.25) 02/12/20 13:26 Est GFR ( Amer) > 60 (>60) 02/12/20 13:26 Est GFR (MDRD) Non-Af > 60 (>60) 02/12/20 13:26 Glucose 115 mg/dL (75-110) H 02/12/20 13:26 Calcium 9.0 mg/dL (8.4-10.2) 02/12/20 13:26 Total Bilirubin 0.7 mg/dL (0.2-1.3) 02/12/20 13:26 Direct Bilirubin 0.2 mg/dL (0.0-0.4) 02/12/20 13:26 Neonat Total Bilirubin Not Reportable 02/12/20 13:26 Neonat Direct Bilirubin Not Reportable 02/12/20 13:26 Neonat Indirect Bili Not Reportable 02/12/20 13:26 AST 17 U/L (14-36) 02/12/20 13:26 ALT 14 U/L (<35) 02/12/20 13:26 Alkaline Phosphatase 65 U/L (38-126) 02/12/20 13:26 Total Protein 6.2 g/dL (6.3-8.2) L 02/12/20 13:26 Albumin 3.7 g/dL (3.5-5.0) 02/12/20 13:26 Lipase 44.9 U/L (23-300) 02/12/20 13:26 Beta HCG, Quant 532.66 mIU/mL (0.0-6.15) H 02/14/20 08:08 Total Beta HCG POSITIVE (NEGATIVE) 02/14/20 08:08 Urine Color YELLOW 02/12/20 09:19 Urine Appearance CLOUDY 02/12/20 09:19 Urine pH 5.0 (5.0-9.0) 02/12/20 09:19 Ur Specific [place] 1.024 02/12/20 09:19 Urine Protein 30 mg/dL (NEGATIVE) H 02/12/20 09:19 Urine Glucose (UA) NEGATIVE mg/dL (NEGATIVE) 02/12/20 09:19 Urine Ketones NEGATIVE mg/dL (NEGATIVE) 02/12/20 09:19 Urine Blood NEGATIVE (NEGATIVE) 02/12/20 09:19 Urine Nitrite NEGATIVE (NEGATIVE) 02/12/20 09:19 Urine Bilirubin NEGATIVE (NEGATIVE) 02/12/20 09:19 Urine Urobilinogen NEGATIVE mg/dL (<2.0) 02/12/20 09:19 Ur Leukocyte Esterase NEGATIVE (NEGATIVE) 02/12/20 09:19 Urine WBC (Auto) 2 /HPF 02/12/20 09:19 Urine RBC (Auto) 1 /HPF 02/12/20 09:19 U Hyaline Cast (Auto) 3 /LPF 02/12/20 09:19 Urine Bacteria (Auto) 1+ /HPF 02/12/20 09:19 Squamous Epi Cells Auto 2 /HPF 02/12/20 09:19 Amorphous Sediment Auto TRACE /HPF 02/12/20 09:19 Urine Mucus (Auto) MANY /LPF 02/12/20 09:19 Urine Ascorbic Acid NEGATIVE (NEGATIVE) 02/12/20 09:19 Urine HCG, Qual POSITIVE (NEGATIVE) H 02/12/20 09:19 Epi Cells (Wet Prep) 3+ EPITHELIALS SEEN 02/12/20 13:05 Bacteria (Wet Prep) 4+ BACTERIA SEEN 02/12/20 13:05 Trichomonas (Wet Prep) NO TRICHOMONAS SEEN 02/12/20 13:05 Vaginal WBC 2+ WBCS SEEN 02/12/20 13:05 Vaginal RBC NO RBCS SEEN 02/12/20 13:05 Vaginal Yeast NO YEAST SEEN 02/12/20 13:05 Chlamydia DNA (PCR) NOT DETECTED (NOT DETECT) 02/12/20 13:05 N.gonorrhoeae DNA (PCR) NOT DETECTED (NOT DETECT) 02/12/20 13:05 SARS-CoV-2 (PCR) NEGATIVE (NEGATIVE) 02/12/20 15:00 Blood Type O POSITIVE 02/12/20 14:49 Antibody Screen NEGATIVE 02/12/20 14:49 Rhogam Indicated RHOGAM NOT INDICATED 02/12/20 14:49 Impressions: Transvaginal US 02/12/20 11:52 IMPRESSION: NO VISUALIZED INTRA- OR EXTRAUTERINE . COMPLEX HYPOECHOIC STRUCTURE CANNOT EXCLUDE RUPTURED ECTOPIC. Obstetrics Ultrasound 02/13/20 07:22 IMPRESSION: Complex mass in the region of the right ovary looks similar to prior. No IUP identified. There is no significant vascularity in this lesion to suggest ectopic. Longer term clinical and imaging followup may be warranted. Stroke Is this a Stroke Patient?: No Acute Heart Failure - Is this a Heart Failure Patient?: No
[2020-02-14 12:23] VITALS: BP 116/70
[2020-02-14] MEDS ORDERED: PRENATAL VITAMIN W DHA CAPSULE PO SCH (13:00)
== END 2020-02-14 13:15 | disposition home or self-care (01) ==
LOC: ER 09:02 → EH 14:45 → 2N 17:10
PROVIDERS: ADMIT Student in an Organized Health Care Education/Training Program; ATTEND Student in an Organized Health Care Education/Training Program
DX: O00.102 Left tubal pregnancy without intrauterine pregnancy (principal); K66.1 Hemoperitoneum; N83.9 Noninflammatory disorder of ovary, fallopian tube and broad ligament, unspecified; Z03.818 Encounter for observation for suspected exposure to other biological agents ruled out
CPT/HCPCS: 99285; 86900; 86901; 36415 ×3; 87210; 86850; 84702 ×3; 83690; 85025 ×2; 85027; 87635; 81025; 80053; 81001; 87491; 87591; 88305 ×2; 76801; 76817; 93976 ×2; 94799; 99140; 76942; 64486; 00840; 59120; 58925; G0378 ×4; C1758; C1765; J2250; J3490 ×3; J1100; J3010 ×2; J1885 ×2; J0330; J2405 ×2; J7060 ×3; J7030; J7120; J2704; J0694 ×3; C9803; 840; J2270

== ENCOUNTER 2020-06-24 10:48 | Emergency (ER) | payer OTHER ==
[2020-06-24 11:03] VITALS: BP 123/72
--- NOTE | 2020-06-24 12:58 | ER Document Report ---
ED GI/ - General Chief Complaint: Lower Abdominal Pain Stated Complaint: LOWER ABDOMINAL PAIN Time Seen by Provider: 06/24/20 12:47 Primary Care Provider: MINNIE BLISS PA-C [Primary Care Provider] - Follow up as needed Notes: CHIEF COMPLAINT: Pelvic pain for 3 weeks HPI: 34-year-old female presenting for right pelvic pain for 3 weeks. Patient reports an ectopic that ruptured in February resulting in a right salpingectomy by Dr. Magui Vu. Patient has been having increasing pain with intercourse and some increasing discomfort in the right pelvis over the last 3 weeks. Went to her primary care provider at [facility] who referred her into the emergency department after obtaining lab work CT scan imaging and ultrasound imaging. They did not call the [facility] office prior to sending the patient today. Patient reports no fever no dysuria. ROS: See HPI - all other systems were reviewed and are otherwise negative Constitutional: no fever Eyes: no drainage, no blurred vision ENT: no runny nose, no sore throat Cardiovascular: no chest pain Resp: no SOB, no cough GI: no vomiting, no diarrhea, + abdominal pain : no dysuria Integumentary: no rash Allergy: no hives Musculoskeletal: no extremity pain or swelling Neurological: no numbness/tingling, no weakness MEDICATIONS: I agree with the patient medications as charted by the RN. ALLERGIES: I agree with the allergies as charted by the RN. PAST MEDICAL HISTORY/PAST SURGICAL HISTORY: Reviewed and agree as charted by RN. SOCIAL HISTORY: Reviewed and agree as charted by RN. FAMILY HISTORY: No significant familial comorbid conditions directly related to patient complaint EXAM: Reviewed vital signs as charted by RN. CONSTITUTIONAL: Alert and oriented and responds appropriately to questions. Well-appearing; well-nourished HEAD: Normocephalic; atraumatic EYES: Conjunctivae clear, sclerae non-icteric ENT: normal nose; no rhinorrhea; moist mucous membranes NECK: Supple without meningismus CARD: RRR; no murmurs, no clicks, no rubs, no gallops; symmetric distal pulses RESP: Normal chest excursion without splinting or tachypnea; breath sounds clear and equal bilaterally; no wheezes, no rhonchi, no rales, pulse oximetry 98% on room air not hypoxic ABD/GI: Normal bowel sounds; non-distended; soft, minimal tenderness in the left pelvis on palpation, no rebound, no guarding; no palpable organomegaly or masses. BACK: The back appears normal and is non-tender to palpation, there is no CVA tenderness EXT: Normal ROM in all joints; no cyanosis, no effusions, no edema SKIN: Normal color for age and race; warm; dry; good turgor; no acute lesions noted NEURO: Moves all extremities equally; Motor and sensory function intact PSYCH: The patient's mood and manner are appropriate. Grooming and personal hygiene are appropriate. MDM: I spoke with Dr. Mayco Johnson from [facility]. We reviewed the results from the patient's labs, CT scan, ultrasound. He indicates patient needs no further work-up here in the emergency department today. He indicates we should have the patient call the office to arrange follow-up and they will likely do an outpatient ultrasound to further follow with these results through the [facility] office. This was discussed with the patient who is comfortable with this plan - Related Data Allergies/Adverse Reactions: No Known Allergies Allergy (Unverified 02/12/20 09:14) Home Medications: vitamins Past Medical History - Social History Smoking Status: Never Smoker Family History: Reviewed & Not Pertinent Psychiatric Medical History: Denies: Hx Depression Physical Exam - Vital signs Vitals: Temp Pulse Resp BP Pulse Ox 98.1 F 76 16 123/72 100 06/24/20 11:01 06/24/20 11:06/24/20 11:06/24/20 11:06/24/20 11:01 Course - Vital Signs Vital signs: Temp Pulse Resp BP Pulse Ox 98.1 F 76 16 123/72 100 06/24/20 11:01 06/24/20 11:01 06/24/20 11:06/24/20 11:06/24/20 11:01 - Laboratory Results Critical Laboratory Results Reviewed: No Critical Results - Radiology Results Critical Radiology Results Reviewed: No Critical Results Discharge - Discharge Clinical Impression: Pelvic pain in female, Left ovarian cyst Condition: Stable Disposition: HOME, SELF-CARE Additional Instructions: Call the [facility] office today to arrange follow-up in the office. We did speak with Dr. Johnson today. He indicates he will likely need an outpatient ultrasound scheduled in a month to reassess the cystic structure. Referrals: MINNIE BLISS PA-C [Primary Care Provider] - Follow up as needed BRETT JOHNSON MD [ACTIVE STAFF] - Follow up as needed
== END 2020-06-24 13:00 | disposition home or self-care (01) ==
LOC: ER 10:48
DX: N83.202 Unspecified ovarian cyst, left side (principal); R10.30 Lower abdominal pain, unspecified; N94.10 Unspecified dyspareunia; R10.2 Pelvic and perineal pain
CPT/HCPCS: 99282